=== PATIENT | female | born 1965 | race Caucasian/White ===

== ENCOUNTER → 2017-09-17 | Outpatient (CLI) | payer BC ==
[~2017-09-17] MED LIST: ALENDRONATE SOD10 MG PO; ALENDRONATE SOD70 MG PO; AMLODIPINE BESYL5 MG PO; ASCORBIC ACID500 MG PO; ATORVASTATIN CA20 MG PO; ATROVENT HFA12.9 GM; CALCIUM CARBON500 MG PO; DEXILANT30 MG PO; FENOFIBRATE145 MG PO; MULTIVITAMINS1 EAC7 PO; OLANZAPINE PO; PRAVASTATIN SOD40 MG PO; PROVENTIL HFA6.7 GM NS; QUETIAPINE FUM100 MG PO; SERTRALINE HCL100 MG PO; TYLENOL WITH C1 EACH PO; VERAPAMIL ER120 MG PO; VITAMIN D1000 UNI1 PO; ZAFIRLUKAST20 MG PO; [UNRECOGNIZED DRUG - OTHER] PO; [UNRECOGNIZED DRUG - OTHER] PO; [UNRECOGNIZED DRUG - OTHER] TOP
--- NOTE | 2017-09-17 16:38 | Diagnostic Imaging Report ---
Left-sided rib series with chest x-ray 5 - views HISTORY: Left-sided rib pain. Left rib cage lump. COMPARISON: None FINDINGS: Nondisplaced fractures of the posterior lateral and anterolateral portions of the left eighth rib best seen on the oblique view. It appears acute to early subacute. Osseous alignment is within normal limits. The joint spaces are well-maintained. The soft tissues appear unremarkable. IMPRESSION: Findings suggestive of acute to subacute nondisplaced fractures of the left eighth rib. Signed by: Dr. Douglas Nava M.D. on 09/17/2017 4:34 PM
== END ==
LOC: RAD 11:47
PROVIDERS: ATTEND Family Medicine
DX: R22.2 Localized swelling, mass and lump, trunk (principal)
CPT/HCPCS: 71101

== ENCOUNTER → 2017-10-30 | Outpatient (CLI) | payer BC ==
[~2017-10-30] MED LIST changes: +BACLOFEN10 MG PO; +CYCLOBENZAPRINE10 MG PO; +HYDROXYZINE HCL25 MG PO; +IRON; +LIDOCAINE; +MUCUS RELIEF400 MG; +POTASSIUM; +SINUS & ALLERG1 EACH; +TEMAZEPAM15 MG; +TIZANIDINE HCL4 MG PO; +TRAZODONE HCL50 MG PO; +VITAMIN E400 UNI1; +ZOLPIDEM TARTRA10 MG PO; +ZONTIVITY
[2017-10-30 16:38] LABS: BASOPHILS % 0.5 % (0.0-1.0); EOSINOPHILS # (AUTO) 0.2 (0.0-0.4); EOSINOPHILS % 2.4 % (0.0-6.0); HEMATOCRIT 37.2 % (34.2-44.1); HEMOGLOBIN 13.5 g/dL (12.0-16.0); LYMPHOCYTES # (AUTO) 1.7 (1.0-3.2); LYMPHOCYTES % 26.4 % (18.0-39.1); MEAN CORPUSCULAR HEMOGLOBIN 31.6 pg (28-32); MEAN CORPUSCULAR HGB CONC 36.3 g/dL (31-35); MEAN CORPUSCULAR VOLUME 87.1 fL (81-99); MONOCYTES # (AUTO) 0.5 (0.2-0.8); MONOCYTES % 8.2 % (4.4-11.3); NEUTROPHILS % 62.2 % (38.7-80.0); PLATELET COUNT 216 x10e3/uL (140-360); RED BLOOD COUNT 4.27 x10e6/uL (3.6-5.1); RED CELL DISTRIBUTION WIDTH 13.2 % (11.7-14.4)
--- OUTSIDE RECORDS SUMMARY | 2017-11-04 12:28 | XMS REPORT ---
Author Author [facility] Address Unknown Phone Unavailable Care Team Providers Care Order Selector Name Role Phone ASHLEY FALK Unavailable Unavailable KEVON GOLDSTEIN Unavailable Unavailable Problems This patient has no known problems. Allergies, Adverse Reactions, Alerts This patient has no known allergies or adverse reactions. Medications This patient has no known medications. Results Test Description Test Time Test Comments Text Results Atomic Results Result Comments BONE DXA DUAL ENERGY [place] [address] Patient Name: SIXTO HOGAN MR #: [id number] : 1965 Age/Sex: 52/F Req #: [id number] [facility] Physician: Ordered by: ASHLEY FALK MD Report #: [id number] Location: DX Room/Bed: Procedure: [id number] DX/BONE DXA DUAL ENERGY Exam Date: Exam Time: REPORT STATUS: Signed EXAM: DXA BONE DENSITY INDICATIONS: Osteoporosis/ chronic smoker COMPARISON: None. FINDINGS: Proximal left femur bone mineral density (BMD) (g/cm2): 0.585 Femur T- score (standard deviation relative to young adult mean BMD): -2.9 Femur Z -score (standard deviation relative to age-matched control group): -2.4 Lumbar bone mineral density (BMD) (g/cm2): 0.905 Lumbar T-score ( standard deviation relative to young adult mean BMD): -1.3 Lumbar Z- score (standard deviation relative to age-matched control group): -0.5 Change since prior exam (%): Femur: Not applicable. Spine: Not applicable. Change since oldest prior exam (%): Femur: Not applicable. Spine: Not applicable. CONCLUSION: 1. Bone mineral density in the left femur is classified as osteoporosis. Fracture risk is increased. 2. Bone mineral density in the spine is classified as osteopenia. Fracture risk is increased. World Health Organization Classification: *The Z-score is provided for informational purposes. The T-score is preferable for clinical decisions. When comparing exams, a change of >4% is considered statistically significant. SUGGESTED RECOMMENDATIONS: Normal T Osteopenia : Consideration should be given to use of calcium supplementation, daily multiple vitamins and adequate exercise, as preventive measures against osteoporosis, if clinically indicated. Osteoporosis T Severe Osteoporosis: In addition to the above, consideration should be given to medical therapy against osteoporosis, if clinically indicated. Tonya Murphy D.O. Dictated by: Tonya Murphy D.O. on 11/02/2017 at 9:16 Electronically approved by: Tonya Murphy D.O. on 11/02/2017 at 9:16 Dictated By: TONYA MURPHY DO 5 Transcribed By: MAYURI on 11/02/17915 COPY TO: ASHLEY FALK MD CT CHEST WO [place] [address] Patient Name: SIXTO HOGAN MR #: [id number] : 1965 Age/Sex: 52/F Req # : [id number] Adm Physician: Ordered by: ASHLEY FALK MD Report #: [id number] Location: DX Room/Bed: Procedure: [id number] CT/CT CHEST WO Exam Date: 11/02/17 Exam Time: 0845 REPORT STATUS: Signed PROCEDURE: CT CHEST WITHOUT CONTRAST COMPARISON: Rib series with chest x-ray 09/17/17 INDICATIONS: CHRONIC COUGH TECHNIQUE: CT images were created without from the apices through the upper abdomen without intravenous contrast. DLP: 188.27 mGy*cm. FINDINGS: LUNGS: Mild bilateral apical pleural-parenchymal thickening. There is diffuse bronchial wall thickening without bronchiectasis. No consolidation. No soft tissue mass. VASCULATURE: Diffuse calcifications throughout the arterial structures without aneurysmal dilatation. The ascending aorta measures 3.1 x 3.3 cm. The main pulmonary artery measures 2.1 cm. MEDIASTINUM/ISMAEL: The heart is normal in size. Coronary artery calcifications are present. No pericardial effusion. The esophagus is normal. THYROID/BASE OF NECK: Visualized portions are normal. LYMPH NODES: No lymphadenopathy PLEURA: No pleural thickening or pleural- based mass. No pleural effusion or pneumothorax. CHEST WALL: No soft tissue mass LIMITED ABDOMEN: Visualized portion of the liver, pancreas, spleen, and kidneys are unremarkable. There is mild thickening of the residual glands without mass. BONES: There are healing fractures of the left ribs numbers 6-10 posterior aspects. No acute fractures or lytic or blastic osseous lesions. CONCLUSION: Diffuse bronchial wall thickening suggestive of reactive airways disease or chronic bronchitis. No pulmonary mass or infiltrate. Multiple healing left-sided rib fractures as described above. Dictated by: Tabitha Kendrick M.D. on at 13:20 Electronically approved by: Tabitha Kendrick M.D. on at 13:20 Dictated By: TABITHA KENDRICK MD 1320 Transcribed By : MAYURI on 11/02/17 1320 COPY TO: ASHLEY FALK MD RIBS UNIL W/CXR [place] [address] Patient Name: SIXTO HOGAN MR #: [id number] : 1965 Age/Sex: 52/F Req # : [id number] Adm Physician: Ordered by: ASHLEY FALK MD Report #: [id number] Location: RAD Room/Bed: Procedure: [id number] DX/RIBS UNILAT W/CXR Exam Date: 09/17/17 Exam Time: 1200 REPORT STATUS: Signed Left-sided rib series with chest x-ray 5 - views HISTORY: Left-sided rib pain. Left rib cage lump. COMPARISON: None FINDINGS: Nondisplaced fractures of the posterior lateral and anterolateral portions of the left eighth rib best seen on the oblique view. It appears acute to early subacute. Osseous alignment is within normal limits. The joint spaces are well-maintained. The soft tissues appear unremarkable. IMPRESSION: Findings suggestive of acute to subacute nondisplaced fractures of the left eighth rib. Signed by: Dr. Douglas Barakat M.D. on 09/17/2017 4:34 PM Dictated By: VAN BARAKAT MD, MD 1634 Transcribed By: SHANIQUA on 09/17/17 1634 COPY TO: ASHLEY FALK MD MANDIBLE COMP 4+VIEW [place] [address] Patient Name: SIXTO HOGAN MR #: [id number] : 1965 Age/Sex: 51/F Req #: [id number] Adm Physician: Ordered by: CAL LATHAM Report #: [id number] Location: ER Room/Bed: Procedure: [id number] DX/MANDIBLE COMP 4+VIEW Exam Date: 06/27/17 Exam Time: 1545 REPORT STATUS: Signed PROCEDURE: X-RAY COMPLETE MANDIBLE, FOUR OR MORE VIEWS COMPARISON: None. INDICATIONS: PAIN ON LEFT SIDE OF JAW/NO TRAUMA FINDINGS: Examination presented for interpretation on 06/29/17 at 1:15 PM BONES: Normal mineralization. No acute fracture or dislocation. Joint spaces are within normal limits. SOFT TISSUES: Negative. OTHER: No definite periapical lucency. Multiple dental restorations. CONCLUSION: No acute osseous abnormality. Douglas Barakat M.D. Dictated by: Douglas Barakat M.D. on 06/29/2017 at 13:14 Electronically approved by: Douglas Barakat M.D. on 06/29/2017 at 13: 14 Dictated By: VAN BARAKAT MD, MD 1314 Transcribed By: MAYURI on 06/29/17 1314 COPY TO: CAL LATHAM
== END | disposition home or self-care (01) ==
LOC: RAD 05:00 → OR 11-04 12:25 → EDSTATUS 11-04 13:30
PROVIDERS: ATTEND Internal Medicine Gastroenterology
DX: Z12.11 Encounter for screening for malignant neoplasm of colon (principal); Z01.810 Encounter for preprocedural cardiovascular examination; Z01.812 Encounter for preprocedural laboratory examination; Z53.09 Procedure and treatment not carried out because of other contraindication
CPT/HCPCS: 36415; 85025; 93005

== ENCOUNTER → 2017-11-02 | Outpatient (CLI) | payer BC ==
--- NOTE | 2017-11-02 09:16 | Diagnostic Imaging Report ---
EXAM: DXA BONE DENSITY INDICATIONS: Osteoporosis/ chronic smoker COMPARISON: None. FINDINGS: Proximal left femur bone mineral density (BMD) (g/cm2):0.585 Femur T-score (standard deviation relative to young adult mean BMD): -2.9 Femur Z-score (standard deviation relative to age-matched control group):-2.4 Lumbar bone mineral density (BMD) (g/cm2):0.905 Lumbar T-score (standard deviation relative to young adult mean BMD): -1.3 Lumbar Z-score (standard deviation relative to age-matched control group):-0.5 Change since prior exam (%): Femur:Not applicable. Spine:Not applicable. Change since oldest prior exam (%): Femur:Not applicable. Spine:Not applicable. CONCLUSION: 1. Bone mineral density in the left femur is classified as osteoporosis. Fracture risk is increased. 2. Bone mineral density in the spine is classified as osteopenia. Fracture risk is increased. World Health Organization Classification: *The Z-score is provided for informational purposes. The T-score is preferable for clinical decisions. When comparing exams, a change of >4% is considered statistically significant. SUGGESTED RECOMMENDATIONS: Normal \T\ Osteopenia:Consideration should be given to use of calcium supplementation, daily multiple vitamins and adequate exercise, as preventive measures against osteoporosis, if clinically indicated. Osteoporosis \T\ Severe Osteoporosis:In addition to the above, consideration should be given to medical therapy against osteoporosis, if clinically indicated. Marcelo Murphy D.O. Dictated by: Marcelo Murphy D.O. on 11/02/2017 at 9:16 Electronically approved by: Marcelo Murphy D.O. on 11/02/2017 at 9:16
--- NOTE | 2017-11-02 13:20 | Diagnostic Imaging Report ---
PROCEDURE:CT CHEST WITHOUT CONTRAST COMPARISON:Rib series with chest x-ray 09/17/17 INDICATIONS:CHRONIC COUGH TECHNIQUE:CT images were created without from the apices through the upper abdomen without intravenous contrast. DLP: 188.27 mGy*cm. FINDINGS: LUNGS:Mild bilateral apical pleural-parenchymal thickening. There is diffuse bronchial wall thickening without bronchiectasis. No consolidation. No soft tissue mass. VASCULATURE:Diffuse calcifications throughout the arterial structures without aneurysmal dilatation. The ascending aorta measures 3.1 x 3.3 cm. The main pulmonary artery measures 2.1 cm. MEDIASTINUM/ISMAEL:The heart is normal in size. Coronary artery calcifications are present. No pericardial effusion. The esophagus is normal. THYROID/BASE OF NECK: Visualized portions are normal. LYMPH NODES: No lymphadenopathy PLEURA:No pleural thickening or pleural-based mass. No pleural effusion or pneumothorax. CHEST WALL:No soft tissue mass LIMITED ABDOMEN:Visualized portion of the liver, pancreas, spleen, and kidneys are unremarkable. There is mild thickening of the residual glands without mass. BONES:There are healing fractures of the left ribs numbers 6-10 posterior aspects. No acute fractures or lytic or blastic osseous lesions. CONCLUSION: Diffuse bronchial wall thickening suggestive of reactive airways disease or chronic bronchitis. No pulmonary mass or infiltrate. Multiple healing left-sided rib fractures as described above. Dictated by: Kevin Kendrick M.D. on 11/02/2017 at 13:20 Electronically approved by: Kevin Kendrick M.D. on 11/02/2017 at 13:20
== END ==
LOC: DX 08:09
PROVIDERS: ATTEND Family Medicine
DX: R05 Cough (principal); R63.4 Abnormal weight loss; M81.0 Age-related osteoporosis without current pathological fracture; F17.210 Nicotine dependence, cigarettes, uncomplicated
CPT/HCPCS: 71250; 77080

== ENCOUNTER 2018-04-30 17:38 | Emergency (ER) | payer BC ==
[~2018-04-30] VITALS: Ht 162.6 cm; Wt 49.9 kg
--- NOTE | 2018-04-30 20:39 | Diagnostic Imaging Report ---
SACRUM AND COCCYX X-RAY - 3 VIEWS HISTORY: \S\fall 2 nights ago \S\[id number] \S\1999 COMPARISON: None available. FINDINGS: Bones: No acute displaced fracture. Osseous alignment is within normal limits. Joints: Mild degenerative changes of the sacroiliac joints. Soft tissues: Diffuse vascular calcifications. Large amount of retained contrast in the rectum. IMPRESSION: No acute radiographic abnormality. Signed by: Dr. Maureen Bello M.D. on 04/30/2018 8:36 PM
[2018-04-30 21:45] VITALS: BP 142/86
== END 2018-04-30 21:49 | disposition home or self-care (01) ==
LOC: ER 17:38
DX: M54.5 Low back pain (principal); W01.0XXA Fall on same level from slipping, tripping and stumbling without subsequent striking against object, initial encounter; Y93.01 Activity, walking, marching and hiking; Y92.008 Other place in unspecified non-institutional (private) residence as the place of occurrence of the external cause; F31.9 Bipolar disorder, unspecified; K21.9 Gastro-esophageal reflux disease without esophagitis; E78.5 Hyperlipidemia, unspecified; F17.210 Nicotine dependence, cigarettes, uncomplicated
CPT/HCPCS: 72220; 99283